=== PATIENT | female | born 1975 | race Caucasian/White ===

== ENCOUNTER → 2019-09-11 | Outpatient (CLI) | payer SELFPAY ==
[~2019-09-11] MED LIST: HYDR-757 PO
--- NOTE | 2019-09-11 15:04 | Diagnostic Imaging Report ---
PROCEDURE: MRI lumbar spine. TECHNIQUE: Multiplanar, multisequence MRI of the lumbar spine was performed without contrast. INDICATION: Right lower extremity radiculopathy. COMPARISON: No prior studies are available for comparison. FINDINGS: There is some straightening of the normal lumbar lordotic curvature. There is minimal retrolisthesis of L3 on L4 and L4 on L5 as well as L5 on S1. Vertebral body heights are maintained. No geographic marrow lesion or acute compression fracture is detected. There is loss of height and signal intensity involving the L2-L3 through L5-S1 intervertebral discs compatible with degenerative disc disease. Conus is unremarkable at the L1-L2 level. T12-L1: The central canal and neural foramina are widely patent. L1-L2: Central canal and neural foramina are widely patent. L2-L3: There is some flattening of ventral thecal sac as well as mild ligamentous thickening, but central canal is widely patent. Neural foramina are patent. L3-L4: Broad-based disc/osteophyte complex flattens the ventral thecal sac. There is increased linear T2 signal through the posterior annulus, suggestive of annular tear. There is significant narrowing of bilateral lateral recesses at this level. AP dimensions of the central canal demonstrates mild narrowing. There is also moderate bilateral neural foraminal stenosis. L4-L5: Broad-based disc/osteophyte complex flattens ventral thecal sac. Central canal is mildly narrowed and there is significant narrowing of the lateral recesses bilaterally. There is also significant left and moderate right neural foraminal stenosis. L5-S1: Central canal is patent. Bilateral lateral recesses are narrowed by broad-based disc/osteophyte complex. There is significant bilateral neural foraminal stenosis. Paraspinous tissues are unremarkable. IMPRESSION: Multilevel lumbar spondylosis with multilevel lateral recess and neural foraminal stenosis described level by level above. There also appears to be mild central canal narrowing at L3-L4 and L4-L5 levels. No acute compression fracture is detected. Dictated by: Dictated on workstation # [id number]
== END ==
LOC: RAD 09-05 08:19
PROVIDERS: ATTEND Nurse Practitioner Family
DX: M54.16 Radiculopathy, lumbar region (principal); M99.02 Segmental and somatic dysfunction of thoracic region; M99.03 Segmental and somatic dysfunction of lumbar region; M99.04 Segmental and somatic dysfunction of sacral region
CPT/HCPCS: 72148